=== PATIENT | female | born 1945 | race Caucasian/White ===

== ENCOUNTER 2017-01-20 07:15 | Emergency (ER) | payer BC, OTHER ==
[~2017-01-20] VITALS: Ht 157.5 cm; Wt 96.7 kg
[~2017-01-20 07:15] MED LIST: HORMONES; PRED20TA PO; SYN50
[2017-01-20 07:22] VITALS: TEMP 36.4; Ht 157.5 cm; Wt 96.7 kg
[2017-01-20 08:37] LABS: BASO % 0.7 %; BASO ABS # 0.04 K/uL (0-0.2); COMPLETE YES; EOS % 1.9 %; HEMATOCRIT 43.4 % (37-47); IG% 0.3 %; LYMPH % 27.4 %; LYMPH ABS # 1.58 K/uL (1.2-3.4); MEAN CELL VOLUME 92.9 fL (80-100); MEAN CORPUSCULAR HEMOGLOBIN 30.8 pg (25-34); MEAN CORPUSCULAR HGB CONC 33.2 g/dl (32-36); MEAN PLATELET VOLUME 9.4 fL (7.4-10.4); MONO % 12.5 %; NEUT % 57.2 %; PLATELET COUNT 315 K/uL (130-400); RED BLOOD COUNT 4.67 M/uL (4.2-5.4); WHITE BLOOD COUNT 5.77 K/uL (4.8-10.8)
[2017-01-20] MEDS ORDERED: ASPI81TA28 PO (08:37)
[2017-01-20] MEDS ORDERED: PSEU120T21 PO (08:37)
[2017-01-20] MEDS ORDERED: MELO15TA4 PO (08:37)
[2017-01-20] MEDS ORDERED: SIMV10TA2 PO (08:37)
[2017-01-20] MEDS ORDERED: OMEGCAP2 PO (08:37)
[2017-01-20] MEDS ORDERED: LEVO50TA PO (08:37)
[2017-01-20] MEDS ORDERED: ESOM20CA PO (08:37)
[2017-01-20] MEDS ORDERED: CETI10TA84 PO (08:37)
[2017-01-20] MEDS ORDERED: AMOX875T PO (08:37)
[2017-01-20] MEDS ORDERED: CHOL100010 PO (08:37)
[2017-01-20 08:45] LABS: URINE APPEARANCE CLEAR (CLEAR); URINE BILIRUBIN NEG (NEG); URINE COLOR YELLOW; URINE EPITHELIAL CELL AUTO 20-30 /lpf (0-5); URINE NITRITE NEG (NEG); URINE SPECIFIC GRAVITY 1.014 (1.000-1.030); UROBILINOGEN NEG (NEG)
[2017-01-20 08:46] LABS: MANUAL MICROSCOPIC REQUIRED? NO; REVIEW REQ? NO
[2017-01-20 08:54] LABS: ALT/SGPT 27 U/L (12-78); BLOOD UREA NITROGEN 11 mg/dl (7-18); BUN/CREATININE RATIO 13.6 (10-20); CALCIUM 9.5 mg/dl (8.5-10.1); CARBON DIOXIDE 29 mmol/L (21-32); CHLORIDE 102 mmol/L (98-107); CREATININE 0.84 mg/dl (0.60-1.20); GLUCOSE 114 mg/dl (70-99); POTASSIUM 3.9 mmol/L (3.5-5.1); SODIUM 139 mmol/L (136-145)
[2017-01-20 09:00] LABS: ALB/GLOB RATIO 0.9 (0.9-2); ALKALINE PHOSPHATASE 81 U/L (45-117); AST/SGOT 16 U/L (15-37)
--- NOTE | 2017-01-20 10:39 | EMERGENCY ROOM VISIT NOTE ---
ED Visit Note First contact with patient: 07:50 Patient seen and evaluated at bedside. Discussed with patient central versus peripheral cause of dizziness. While I feel the patient's presentation and exam are most consistent with peripheral causes of vertigo, patient requested a head CT.
--- NOTE | 2017-01-20 11:13 | DIAGNOSTIC IMAGING REPORT ---
CT HEAD WITHOUT CONTRAST (CT) CLINICAL HISTORY: dizziness COMPARISON STUDY: No previous studies for comparison. TECHNIQUE: Axial CT of the brain is performed from the vertex to the skull base. IV contrast was not administered for this examination. A dose lowering technique was utilized adhering to the principles of ALARA. CT DOSE: 844.62 mGy.cm FINDINGS: No intra or extra-axial mass lesions are visualized. There is no CT evidence of acute cortical infarction. There is no evidence of midline shift. There is no acute hemorrhage. No calvarial fractures are visualized. There are minimal white matter hypodensities likely on a small vessel basis. There is no evidence of pathologic ventricular dilatation. There is no evidence of acute sinusitis IMPRESSION: No acute intracranial findings Electronically signed by: Eldon Deluna M.D. 01/20/2017 11:12 AM Dictated Date/Time: 01/20/2017 11:11 AM
[2017-01-20] MEDS ORDERED: MECL1TAB42 PO (11:32)
[2017-01-20 11:53] VITALS: BP 143/74; PULSE 84; O2SAT 95
--- NOTE | 2017-01-27 20:24 | EMERGENCY ROOM VISIT NOTE ---
History First contact with patient: 07:50 Chief Complaint: DIZZY Stated Complaint: DIZZY Nursing Triage Summary: patient states on the she went to her PCP for a physical and was given a antibiotic for sinus infection. patient states since saturday she has had periods of dizziness when laying and when she is standing. patient denies headache, chest pain, SOB. History of Present Illness The patient is a 71 year old white female who presents to the Emergency Room with complaints of dizziness and head pressure. Patient states she thinks she has a sinus infection. She was seen by her PCP on January 15 and was prescribed an antibiotic. She states it has not helped. She has episodes of dizziness when laying down. She denies any dizziness when sitting. No trauma. She denies any headache. No chest pain or shortness of breath. No blurred vision. No change in hearing or speech. She denies any weakness of the extremities. Occasional dizziness when she is standing, but it is worse when she is laying down. No prior history of similar dizziness. She denies any ear pain or pressure. No vomiting but she does have some nausea. Her accompanies her today. Review of Systems REVIEW OF SYSTEM: HEENT: No visual problems, hearing loss, or tinnitus. There is no difficulty swallowing and no oral lesions are present. LYMPH: No adenopathy. PULMONARY: No cough, shortness of breath, sputum production or hemoptysis. CARDIOVASCULAR: No chest pain, palpitations, shortness of breath or peripheral edema. GASTROINTESTINAL: No diarrhea, constipation, nausea, vomiting, or abdominal pain. GENITOURINARY: No dysuria, frequency, urgency or nocturia. NEUROLOGIC: No weakness, muscle tenderness, epilepsy or history of neurological problems. MUSCULOSKELETAL: No history of joint tenderness/swelling. Positive history of arthritis and arthralgias. SKIN: No rashes or lesions. PSYCHIATRIC: No history of depression or mental illness. ENDOCRINE: No history of diabetes, thyroid disorders, or abnormal hair growth. Past Medical/Surgical History Previous surgeries: Cervix surgery, Hysterectomy Medical history: Hypothyroidism, constipation, urinary incontinence, history of asthma, history of bronchitis, and hypertension Family History Significant for heart disease, dementia, and kidney stones. Parents are . Social History Smoking Status: Never Smoker Smokeless Tobacco Use: No Alcohol Use: none Drug Use: none Marital Status: Housing Status: lives with family Occupation Status: employed Current/Historical Medications Scheduled Amoxicillin & Pot Clavulanate (Augmentin 875-125 mg), 1 TAB PO BID Aspirin (Aspirin Ec), 81 MG PO HS Cetirizine (Zyrtec), 10 MG PO DAILY Cholecalciferol (Vitamin D), 1,000 UNITS PO HS Esomeprazole Magnesium (Nexium), 20 MG PO DAILY Levothyroxine Sodium (Synthroid), 50 MCG PO DAILY Meloxicam (Meloxicam), 15 MG PO DAILY [place]-3 Fatty Acids (Fish Oil), 2 CAP PO DAILY Pseudoephedrine-Guaifenesin (Mucinex D), 1 TAB PO BID Simvastatin (Zocor), 10 MG PO QPM Scheduled PRN Meclizine Hcl (Meclizine Hcl), 1 TAB PO TID PRN for Dizziness or Vertigo Allergies Coded Allergies: Sulfa Antibiotics (Unverified Allergy, Unknown, ., 01/20/17) Physical Exam Vital Signs Date Time Temp Pulse Resp B/P (MAP) Pulse Ox O2 Delivery O2 Flow Rate FiO2 01/20/17 11:53 84 20 143/74 95 Room Air 01/20/17 11:38 77 01/20/17 11:17 76 18 124/86 96 Room Air 01/20/17 09:31 79 18 129/71 94 Room Air 01/20/17 07:56 126 01/20/17 07:52 87 19 141/85 97 96 135/92 109 123/84 01/20/17 07:22 36.4 95 18 147/96 98 Room Air Physical Exam Gen.: Well-developed, well-nourished, elderly white female, in no acute distress. Laying on a bed. Alert and oriented. Skin:Warm and dry with good turgor. No rashes or lesions. No ecchymosis or erythema. The patient is not diaphoretic. No abrasions. HEENT: Normocephalic atraumatic. Eyes PERRLA, EOMI. No conjunctiva or scleral injection. No significant nystagmus. Ears TMs intact bilaterally with good light reflexes. No erythema or bulging. No hemotympanum. Canals are patent. Nares patent bilaterally without turbinate enlargement. Clear nasal drainage. No epistaxis. Oropharynx without erythema or exudate. Uvula midline, oral mucosa moist. No lesions present. Lymphatics are palpated without anterior or posterior chain enlargement or tenderness. Heart: Heart RRR. No MGR. Peripheral pulses are 2+. Lungs: Lungs are clear to auscultation. No crackles rhonchi or wheezing. Good air movement. The patient is able to take a deep breath. Abdomen: Abdomen was inspected, auscultated, and palpated. Bowel sounds present x 4. Soft, nontender to palpation. No hepato-splenomegaly. No masses noted. No rebound. Musculoskeletal: Gross motor function to the upper and lower extremities is intact and unremarkable. No pronator drift. Normal straight leg raise bilaterally. Full motion of the shoulders, elbows, and wrists bilaterally. Strength is 5/5 for resisted motion of the upper and lower extremities. Normal heel to arredondo bilaterally. Neurologic: Cranial nerves II through XII are intact. Gross sensation is intact across the upper and lower extremities by soft touch. Medical Decision & Procedures ER Provider Diagnostic Interpretation: EKG obtained today reveals a normal sinus rhythm with a rate of 88. No acute ST or T-wave changes. CT scan imaging of the head was obtained to rule out intracranial bleed, mass, or fracture. This was read by radiology as negative for acute findings. Laboratory Results 01/20/17 08:20 Red Blood Count 4.67, Mean Corpuscular Volume 92.9, Mean Corpuscular Hemoglobin 30.8, Mean Corpuscular Hemoglobin Concent 33.2, Mean Platelet Volume 9.4, Neutrophils (%) (Auto) 57.2, Lymphocytes (%) (Auto) 27.4, Monocytes (%) (Auto) 12.5, Eosinophils (%) (Auto) 1.9, Basophils (%) (Auto) 0.7, Neutrophils # (Auto ) 3.30, Lymphocytes # (Auto) 1.58, Monocytes # (Auto) 0.72, Eosinophils # (Auto ) 0.11, Basophils # (Auto) 0.04 01/20/17 08:20 Test 01/20/17 08:20 01/20/17 08:30 White Blood Count 5.77 K/uL (4.8-10.8) Red Blood Count 4.67 M/uL (4.2-5.4) Hemoglobin 14.4 g/dL (12.0-16.0) Hematocrit 43.4 % (37-47) Mean Corpuscular Volume 92.9 fL (80-100) Mean Corpuscular Hemoglobin 30.8 pg (25-34) Mean Corpuscular Hemoglobin Concent 33.2 g/dl (32-36) Platelet Count 315 K/uL (130-400) Mean Platelet Volume 9.4 fL (7.4-10.4) Neutrophils (%) (Auto) 57.2 % Lymphocytes (%) (Auto) 27.4 % Monocytes (%) (Auto) 12.5 % Eosinophils (%) (Auto) 1.9 % Basophils (%) (Auto) 0.7 % Neutrophils # (Auto) 3.30 K/uL (1.4-6.5) Lymphocytes # (Auto) 1.58 K/uL (1.2-3.4) Monocytes # (Auto) 0.72 K/uL (0.11-0.59) Eosinophils # (Auto) 0.11 K/uL (0-0.5) Basophils # (Auto) 0.04 K/uL (0-0.2) RDW Standard Deviation 42.6 fL (36.4-46.3) RDW Coefficient of Variation 12.6 % (11.5-14.5) Immature Granulocyte % (Auto) 0.3 % Immature Granulocyte # (Auto) 0.02 K/uL (0.00-0.02) Anion Gap 8.0 mmol/L (3-11) Est Creatinine Clear Calc Drug Dose 66.7 ml/min Estimated GFR () 81.0 Estimated GFR (Non- 69.9 BUN/Creatinine Ratio 13.6 (10-20) Calcium Level 9.5 mg/dl (8.5-10.1) Total Bilirubin 0.4 mg/dl (0.2-1) Aspartate Amino Transf (AST/SGOT) 16 U/L (15-37) Alanine Aminotransferase (ALT/SGPT) 27 U/L (12-78) Alkaline Phosphatase 81 U/L (45-117) Total Creatine Kinase 43 U/L (26-192) Creatine Kinase MB < 0.5 ng/ml (0.5-3.6) Creatine Kinase MB Ratio (0-3.0) Troponin I < 0.015 ng/ml (0-0.045) Total Protein 7.6 gm/dl (6.4-8.2) Albumin 3.5 gm/dl (3.4-5.0) Globulin 4.1 gm/dl (2.5-4.0) Albumin/Globulin Ratio 0.9 (0.9-2) Urine Color YELLOW Urine Appearance CLEAR (CLEAR) Urine pH 5.0 (4.5-7.5) Urine Specific [place] 1.014 (1.000-1.030) Urine Protein NEG (NEG) Urine Glucose (UA) NEG (NEG) Urine Ketones NEG (NEG) Urine Occult Blood NEG (NEG) Urine Nitrite NEG (NEG) Urine Bilirubin NEG (NEG) Urine Urobilinogen NEG (NEG) Urine Leukocyte Esterase TRACE (NEG) Urine WBC (Auto) 1-5 /hpf (0-5) Urine RBC (Auto) 0-4 /hpf (0-4) Urine Hyaline Casts (Auto) 0 /lpf (0-5) Urine Epithelial Cells (Auto) 20-30 /lpf (0-5) Urine Bacteria (Auto) NEG (NEG) CBC, chem panel, troponin, CK/CK-MB, and UA were obtained. CBC is unremarkable. Chem panel is unremarkable. Cardiac enzymes are unremarkable. UA is normal. ED Course Patient and her were educated regarding today's findings. Conservative care measures were discussed. IV was established. Labs were obtained. EKG was also obtained. She was placed on a monitor and remained stable. All of her lab work and EKG were normal. She was allowed to drink fluids due to the possibility of mild dehydration. Given all of her normal findings, CT scan imaging of the head was discussed with the patient and her . They elected to proceed. This was also obtained and was read by radiology as unremarkable. Intrinsic and extrinsic causes of dizziness were discussed at length. Possibility of her sinus infection causing her symptoms was discussed. She should finish her antibiotics as previously prescribed. Follow up with her PCP for reevaluation this week. Maintain hydration. Return to the ED for any acute changes or worsening of symptoms. Prescription was given for meclizine 25 mg to be used every 8 hours as needed for dizziness. Patient was seen in conjunction with Dr. Murguia, who also evaluated the patient and concurred with today's diagnosis and treatment plan. Medical Decision Possibility of intracranial bleed, intracranial mass or tumor, fracture, dehydration, electrolyte abnormality, sinus infection, ear infection, arrhythmia , UTI, BPV, Mnire's disease, and cardiac source were considered among others. [facility] Monitoring Program Search Results: no issues identified Impression Primary Impression: Dizziness Departure Information Dispostion Home / Self-Care Condition FAIR Prescriptions Meclizine Hcl (MECLIZINE HCL) 25 Mg Tab 1 TAB PO TID Y for Dizziness or Vertigo, #15 TAB Prov: Gianni Jimenez,P.A. 01/20/17 Referrals [facility]ced[facility] ERIC (PCP) Forms HOME CARE DOCUMENTATION FORM, IMPORTANT VISIT INFORMATION Patient Instructions Dizziness Vertigo Balance Safety, [facility] Additional Instructions Finish your antibiotic as previously prescribed Follow-up with your PCP for reevaluation this week Maintain hydration Return to the ED for any acute changes or worsening of symptoms Meclizine every 8 hours as needed for dizziness
== END 2017-01-20 11:57 | disposition home or self-care (01) ==
LOC: C.EDB 07:16
DX: R42 Dizziness and giddiness (principal); E03.9 Hypothyroidism, unspecified; I10 Essential (primary) hypertension; Z79.82 Long term (current) use of aspirin; Z79.1 Long term (current) use of non-steroidal anti-inflammatories (NSAID); Z90.710 Acquired absence of both cervix and uterus